=== PATIENT | male | born 1940 | race Caucasian/White ===

== ENCOUNTER → 2020-11-02 | Outpatient (CLI) | payer MEDICARE ==
[~2020-11-02] MED LIST: AMLO5 PO; Allergy Relief10 M1 PO; EUTHYROX125 MCG PO; FURO20; FURO20 PO; IBUP200 PO; METO50 PO; POTA8 PO; QUET25 PO; TADA10TA; TAMS.4ER PO; VISBIOME PROBI1 EACH PO
== END | disposition home or self-care (01) ==
LOC: LAB SHORT 12:25 → LAB EV 12:25
DX: R30.9 Painful micturition, unspecified (principal)
CPT/HCPCS: 87077; 87086; 87186

== ENCOUNTER 2020-11-08 02:21 | Inpatient (IN) | payer MEDICARE ==
[~2020-11-08] VITALS: Ht 172.7 cm; Wt 93.4 kg
[~2020-11-08 02:21] MED LIST changes: -AMLO5 PO; -FURO20; -QUET25 PO; -TADA10TA; -TAMS.4ER PO; -VISBIOME PROBI1 EACH PO
[2020-11-08 03:40] LABS: Source, Urine Catheter
[2020-11-08 03:43] LABS: BASOPHILS ABSOLUTE AUTO 0.07 K/mm3 (0.00-0.23); BASOPHILS PERCENT AUTO 1 % (0-2); Bilirubin, Urine Neg (Neg); Blood, Urine 5+ (Neg); EOSINOPHILS PERCENT AUTO 7 % (0-6); Glucose Qualitative, Urine Neg (Neg); Hematocrit 35.8 % (37.0-53.0); Hemoglobin 12.2 g/dL (13.5-17.5); IMMATURE GRAN ABSOLUTE AUTO 0.03 K/mm3 (0.00-0.10); IMMATURE GRAN PERCENT AUTO 0 % (0-1); Ketones, Urine Neg (Neg); LYMPHOCYTES ABSOLUTE AUTO 2.09 K/mm3 (0.84-5.20); LYMPHOCYTES PERCENT AUTO 30 % (21-46); Leukocyte Esterase, Urine 3+ (Neg); MONOCYTES ABSOLUTE AUTO 0.75 K/mm3 (0.16-1.47); MONOCYTES PERCENT AUTO 11 % (4-13); Mean Corpuscular HGB 32.4 pg (26.0-34.0); Mean Corpuscular HGB Conc 34.1 g/dL (31.5-36.5); Mean Corpuscular Volume 95 fL (80-100); Mean Platelet Volume 10.8 fL (9.1-12.4); NEUTROPHILS ABSOLUTE AUTO 3.49 K/mm3 (1.96-9.15); NEUTROPHILS PERCENT AUTO 50 % (41-73); Nitrite, Urine Pos (Neg); Platelet Count 144 K/mm3 (150-400); Protein, Urine 3+ (Neg); RDW Coefficient Variation 11.9 % (11.7-14.2); RDW Standard Deviation 41.2 fL (35.1-46.3); Red Blood Cell Count 3.76 M/mm3 (4.30-5.90); Specific Gravity, Urine 1.015 (1.003-1.022); Urobilinogen, Urine 2+ (Normal); White Blood Cell Count 6.93 K/mm3 (4.00-11.30)
[2020-11-08 03:45] LABS: Appearance, Urine Clear (Clear); Color, Urine Yellow (P-Yellow)
[2020-11-08 03:50] LABS: Bacteria Many /hpf; Mucus Light (0-Heavy); Squamous Epithelial Cells Not Seen /hpf (Few)
[2020-11-08 03:54] LABS: U Amphetamine Screen Not Detected; U Barbituate Screen Not Detected; U Benzodiazapine Screen DETECTED; U Buprenorphine Screen Not Detected; U Cannabinoids Screen Not Detected; U Cocaine Screen Not Detected; U Methadone Screen Not Detected; U Methamphetamine Screen Not Detected; U Opiates Screen Not Detected; U Oxycodone Screen DETECTED; U Phencyclidine Screen Not Detected; U Propoxyphene Screen Not Detected
[2020-11-08 03:59] LABS: Alanine Aminotransfer (ALT/SGP 29 U/L (12-78); Albumin/Globulin Ratio 0.8 (0.8-1.8); Alk Phos 128 U/L (50-136); Anion Gap 6 mmol/L (6-16); Aspartate Aminotrans (AST/SGOT 43 U/L (12-37); Bilirubin, Total 0.9 mg/dL (0.1-1.0); Blood Urea Nitrogen 12 mg/dL (8-24); Bun/Creatinine Ratio 11.5 (12.0-20.0); CO2, Blood 27 mmol/L (21-32); Calcium, Blood 8.7 mg/dL (8.5-10.1); Chloride, Blood 103 mmol/L (98-108); Creatinine, Blood 1.04 mg/dL (0.60-1.20); Ethanol (Alcohol), Blood, Med <3 mg/dL; Glomerular Filtration Rate >60 (60-); Glucose, Blood 100 mg/dL (70-99); Magnesium, Blood 2.2 mg/dL (1.6-2.4); Potassium, Blood 4.7 mmol/L (3.5-5.5); Sodium, Blood 136 mmol/L (136-145)
[2020-11-08 06:50] LABS: Free Thyroxine 1.13 ng/dL (0.70-1.60)
--- NOTE | 2020-11-08 11:45 | NUR ---
RECIEVED REPORT FROM DINORAH WALTERS RN @ 2578. PATIENT TO BE TRANSFERED TO ROOM 363.
--- NOTE | 2020-11-08 15:45 | NUR ---
PATIENT ARRIVED TO ROOM 363 @ 1153. [facility]. UNRELIABLE HISTORIAN. MED REC, H&P AND ADMISSION ASSESSMENT COMPLETED WITH THE ASSIST OF MEDICAL RECORDS. PATIENT ALERT AND ORIENTED WITH FORGETFULNESS. WORKED WITH PT AND AMBULATES WITH SEMI-STEADY GAIT. RESTING IN ROOM AT THIS TIME.
[2020-11-09 04:56] LABS: BASOPHILS ABSOLUTE AUTO 0.06 K/mm3 (0.00-0.23); BASOPHILS PERCENT AUTO 1 % (0-2); EOSINOPHILS ABSOLUTE AUTO 0.33 K/mm3 (0.00-0.68); EOSINOPHILS PERCENT AUTO 5 % (0-6); Hemoglobin 11.6 g/dL (13.5-17.5); IMMATURE GRAN ABSOLUTE AUTO 0.02 K/mm3 (0.00-0.10); IMMATURE GRAN PERCENT AUTO 0 % (0-1); LYMPHOCYTES ABSOLUTE AUTO 1.87 K/mm3 (0.84-5.20); LYMPHOCYTES PERCENT AUTO 31 % (21-46); MONOCYTES ABSOLUTE AUTO 0.52 K/mm3 (0.16-1.47); MONOCYTES PERCENT AUTO 9 % (4-13); Mean Corpuscular HGB 32.6 pg (26.0-34.0); Mean Corpuscular HGB Conc 34.1 g/dL (31.5-36.5); Mean Corpuscular Volume 96 fL (80-100); Mean Platelet Volume 10.4 fL (9.1-12.4); NEUTROPHILS ABSOLUTE AUTO 3.33 K/mm3 (1.96-9.15); NEUTROPHILS PERCENT AUTO 54 % (41-73); Platelet Count 133 K/mm3 (150-400); RDW Coefficient Variation 11.8 % (11.7-14.2); RDW Standard Deviation 40.9 fL (35.1-46.3); Red Blood Cell Count 3.56 M/mm3 (4.30-5.90); White Blood Cell Count 6.13 K/mm3 (4.00-11.30)
[2020-11-09 05:11] LABS: International Normalized Ratio 1.17; Prothrombin Time Results 12.4 Sec (9.7-11.5)
[2020-11-09 05:34] LABS: Alanine Aminotransfer (ALT/SGP 23 U/L (12-78); Albumin, Blood 2.7 g/dL (3.4-5.0); Albumin/Globulin Ratio 0.8 (0.8-1.8); Alk Phos 111 U/L (50-136); Anion Gap 5 mmol/L (6-16); Aspartate Aminotrans (AST/SGOT 29 U/L (12-37); Bilirubin, Total 1.1 mg/dL (0.1-1.0); Blood Urea Nitrogen 10 mg/dL (8-24); Bun/Creatinine Ratio 10.3 (12.0-20.0); CO2, Blood 28 mmol/L (21-32); Calcium, Blood 8.8 mg/dL (8.5-10.1); Chloride, Blood 108 mmol/L (98-108); Creatinine, Blood 0.97 mg/dL (0.60-1.20); Globulin, Blood 3.5 g/dL (2.2-4.0); Glomerular Filtration Rate >60 (60-); Glucose, Blood 87 mg/dL (70-99); Potassium, Blood 4.3 mmol/L (3.5-5.5); Sodium, Blood 141 mmol/L (136-145); Total Protein, Blood 6.2 g/dL (6.4-8.2); Triiodothyronine, Free 1.36 pg/mL (2.18-3.98)
--- NOTE | 2020-11-09 05:36 | NUR ---
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 ANSWERS MOST QUESTIONS APPROPRIATELY BUT SOMETIMES SAYS SOME NONSENSICAL THINGS. AT BEDTIME PT WOKE UP AND WAS READY TO GET UP AND TAKE A BATH SO THAT HE COULD GO TO WORK. PT WAS INSISTANT ON THIS FOR A FEW MINUTES BUT WAS EVENTUALLY REDIRECTED BACK TO BED. LATER THIS MORNING PT STATED "WOW WHAT TIME WAS IT LAST NIGHT THAT I WAS ALL READY TO GO AND GET OUT OF HERE? I DON'T KNOW WHAT I WAS THINKING". MENTATION MAY BE CLEARING A BIT. DENIES PAIN, SOB, N/V. VSS, WILL CONTINUE TO MONITOR.
--- NOTE | 2020-11-09 17:18 | NUR ---
SUMMARY PT SITTING UP IN BED WATCHING TV, PT HAS BEEN PLEASANT AND COOPERATIVE WITH CARE, OCC CONFUSION, FAMILY HAS BEEN IN TO VISIT, PT HAS BEEN UP TO WORK WITH THERAPY, YAHAIRA WELL, VSS, WILL CONT TO MONITOR
[2020-11-10 04:31] LABS: BASOPHILS ABSOLUTE AUTO 0.04 K/mm3 (0.00-0.23); BASOPHILS PERCENT AUTO 1 % (0-2); EOSINOPHILS ABSOLUTE AUTO 0.23 K/mm3 (0.00-0.68); EOSINOPHILS PERCENT AUTO 4 % (0-6); Hematocrit 33.4 % (37.0-53.0); Hemoglobin 11.4 g/dL (13.5-17.5); IMMATURE GRAN ABSOLUTE AUTO 0.01 K/mm3 (0.00-0.10); IMMATURE GRAN PERCENT AUTO 0 % (0-1); LYMPHOCYTES ABSOLUTE AUTO 1.81 K/mm3 (0.84-5.20); LYMPHOCYTES PERCENT AUTO 31 % (21-46); MONOCYTES ABSOLUTE AUTO 0.47 K/mm3 (0.16-1.47); MONOCYTES PERCENT AUTO 8 % (4-13); Mean Corpuscular HGB 32.2 pg (26.0-34.0); Mean Corpuscular HGB Conc 34.1 g/dL (31.5-36.5); Mean Corpuscular Volume 94 fL (80-100); Mean Platelet Volume 10.2 fL (9.1-12.4); NEUTROPHILS ABSOLUTE AUTO 3.22 K/mm3 (1.96-9.15); NEUTROPHILS PERCENT AUTO 56 % (41-73); Platelet Count 132 K/mm3 (150-400); RDW Coefficient Variation 11.6 % (11.7-14.2); RDW Standard Deviation 40.6 fL (35.1-46.3); Red Blood Cell Count 3.54 M/mm3 (4.30-5.90); White Blood Cell Count 5.78 K/mm3 (4.00-11.30)
[2020-11-10 04:47] LABS: Anion Gap 5 mmol/L (6-16); Blood Urea Nitrogen 12 mg/dL (8-24); Bun/Creatinine Ratio 12.4 (12.0-20.0); CO2, Blood 29 mmol/L (21-32); Calcium, Blood 8.8 mg/dL (8.5-10.1); Chloride, Blood 105 mmol/L (98-108); Creatinine, Blood 0.97 mg/dL (0.60-1.20); Glomerular Filtration Rate >60 (60-); Glucose, Blood 90 mg/dL (70-99); Potassium, Blood 4.1 mmol/L (3.5-5.5); Sodium, Blood 139 mmol/L (136-145)
--- NOTE | 2020-11-10 04:59 | NUR ---
SHIFT SUMMARY: VSS. AFEB. 02 97% ON RA. A/OX2- UNCLEAR ABOUT DATES AND TIME FRAMES. FORGETFUL AND IMPULSIVE. ATTEMPTED TO STAND UP AT EOB WITHOUT REGARD TO F/C TUBING. STATED THAT HIS BACK SURGERY WAS 8 DAYS AGO WHEN IT WAS NOTED ON ADMIT TO BE A MONTH AGO. CIWA SCORE OF 3. F/C PATENT AND DRAINING MARK COLORED URINE. MED X 1 FOR STERNUM PAIN- PT STATES HE RECENTLY HAD A FALL AT HOME AND HIT HIS STERNUM ON THE ARM OF A COUCH. DENIES BACK PAIN. INCISION TO LUMBAR SPINE HEALING WELL, EDGES APPROXIMATED, DORMITORY KEEPER, NO DRAINAGE. BED ALARM ON. NO ACUTE OVERNIGHT EVENTS.
--- NOTE | 2020-11-10 09:13 | NUR ---
PT HR/MEDICATION CLARIFICATION THIS RN SPOKE WITH DR. LAROSE AT 0914 ABOUT PT HR OF 51 WITH LOPRESSOR BEING ORDERED. THIS RN RECEIVED ORDERS TO CONTINUE TO GIVE THE LOPRESSOR DUE TO PT RECEIVING MEDICATION YESTERDAY WITH A HR OF 57. THIS RN WILL CONTINUE TO MONITOR PT.
--- NOTE | 2020-11-10 12:39 | NUR ---
GRIFFIN CATHETER REMOVAL THIS RN REMOVED PT'S GRIFFIN CATHETER AT 1240. BLOOD PRESENT AT TIP OF CATHETER UPON REMOVAL.
--- NOTE | 2020-11-10 19:12 | NUR ---
SHIFT SUMMARY PT IS AOX2-3. PT DENIES PAIN, N/V, SOB. PT IS UP IN CHAIR WITH BRACE T/O SHIFT. PT IS ONE PERSON ASSIST IN ROOM. THIS RN REMOVED PT'S GRIFFIN AT 1240 PER NOTE. PT HAS SINCE HAD 300 ML OUTPUT. PT WORKED WITH PT/OT AND WALKED THE HALLS. PT DID NOT HAVE ANY VISITORS TODAY. PT IS IN BED, CALL LIGHT IN REACH, BED IN LOW POSITION WITH ALARM ON.
--- NOTE | 2020-11-10 23:34 | NUR ---
CALL TO HOSPITALIST / PVR 450 PT VOIDED 25CC'S, PVR 450. CALL TO HOSPITALIST MELL AMATO. NEW ORDER FOR FLOMAX 0.4MG QD, FIRST DOSE NOW. STRAIGHT CATH PRN BLADDER DISCOMFORT.
--- NOTE | 2020-11-11 02:33 | NUR ---
STRAIGHT CATH PER ORDERS DUE TO PT VOIDING FREQUENT SMALL AMTS AND REPORTING FEELING BLADDER IS FULL. 650MLS URINE OBTAINED VIA STRAIGHT CATH. URINE CLEAR, MARK COLORED, CONCENTRATED APPEARING.
--- NOTE | 2020-11-11 04:24 | NUR ---
SHIFT SUMMARY: VSS. AFEB. AAOX2. FORGETFUL W/ DATES AND TIMES. DOES NOT CALL FOR ASSISTANCE WHEN NEEDING TO VOID. SETS BED ALARM OFF. REMEMBERS TO PUT BACK BRACE ON WHEN GETTING UP OOB. STRAIGHT CATHED X 1 PER ORDERS. TAMSULOSIN STARTED AT HS. IV ABT INFUSED PER ORDERS. SLEPT INTERMITTENTLY TONIGHT. NO C/O PAIN. NO ACUTE OVERNIGHT EVENTS WCTM.
--- NOTE | 2020-11-11 04:39 | NUR ---
PT [id number] CALLED AND UPDATED. SHE WOULD LIKE TO BE CONTACTED BY AVIATION OPERATIONS SPECIALIST OR TEAM FACILITATOR.
--- NOTE | 2020-11-11 16:05 | NUR ---
THIS NURSE NOTIFIED MURIEL MCCOY THAT PATIENT'S DAUGHTER IN LAW HAS CONCERNS ABOUT PATIENT'S LIVING SITUATION. SEE CHOLO MCCOY'S NOTE
--- NOTE | 2020-11-11 19:30 | NUR ---
SHIFT SUMMARY PT AXO, PLEASANT AND COOPERATIVE WITH CARE, THOUGH FORGETFUL. DENIES PAIN, SOB AND N/V. NO ACUTE CHANGES THIS SHIFT. IV PATENT AND SALINE LOCKED. BLADDER SCAN X2 THIS SHIFT, STRAIGHT CATH X1 WITH 700 ML OUT. PT DOES REPORT PAINFUL URINATION AND URGENCY WHEN VOIDING. BED IN LOW POSITION, CALL LIGHT WITHIN REACH.
--- NOTE | 2020-11-12 05:05 | NUR ---
OLIVING MACHINE OPERATOR SUMMARY PT A&OX4, FORGETFUL AT TIMES, ABLE TO MAKE NEEDS KNOWN. PLEASANT AND COOPERATIVE TO CARE. NO C/O PAIN OR ANY DISCOMFORT THIS SHIFT. NO C/O CP, SOB, OR N&V. PT CALM AND RESTED IN BED T/O SHIFT, ON IV ABX, NO ASE NOTED. NO ACUTE CHANGES NOTED TO PT THIS SHIFT. BED AT LOWEST POSITION W/ ALARM ON, CALL LIGHT WITHIN REACH.
--- NOTE | 2020-11-12 18:39 | NUR ---
PT WAS UP AMBULATING IN THE [facility] WITH P.T. TODAY WEARING BACK BRACE. REPORTS MILD PAIN/DISCOMFORT. FLOW MAX DOSE INCREASED TO 0.8MG DAILY. CIALIS STARTED. ORDERS FOR BLADDER SCAN EVERY 6 HOURS PRN. POSSIBLE DISCHARGE TOMORROW. NO ACUTE CHANGES NOTED, WILL CONTINUE TO MONITOR AND REPORT TO ONCOMING RN.
--- NOTE | 2020-11-13 04:36 | NUR ---
GREEN PLUMBER SUMMARY PT A&OX4, ABLE TO MAKE NEEDS KNOWN. PLEASANT AND COOPERATIVE TO CARE. PT MEDICATED FOR PAIN PER EMAR. NO C/O CP, SOB, OR N&V. NO ACUTE CHANGES NOTED TO PT THIS SHIFT. CALM NA RESTED IN BED T/O SHIFT. BED AT LOWEST POSITION, ALARM ON. PT SBA TO BATHROOM. CALL LIGHT WITHIN REACH.
[2020-11-13] MEDS ORDERED: TADA10TA (15:45)
[2020-11-13] MEDS ORDERED: QUET25 PO (15:46)
[2020-11-13] MEDS ORDERED: VISBIOME PROBI1 EACH PO (15:48)
[2020-11-13] MEDS ORDERED: TAMS.4ER PO (15:48)
[2020-11-13] MEDS ORDERED: AMLO5 PO (15:50)
--- NOTE | 2020-11-13 16:34 | NUR ---
DISCHARGE DISCHARGE INSTRUCTIONS, MEDICTION LIST AND FOLLOW UP APPOINTMENT REVIEWED WITH PT AND HIS SON. PT WITHOUT PCP, NEW PT PACKAGE GIVEN AND PT INSTRUCTED TO FOLLOW UP AT URGENT CARE. NEW PCP TO BE ASSIGNED AT THAT TIME. PT AND SON VERBALLY INDICATED UNDERSTANDING OF ALL INSTRUCTIONS RECEIVED. PT ESCORTED OUT VIA W/C BY SYBIL.
== END 2020-11-13 16:32 | disposition home or self-care (01) | DRG 698 ==
LOC: ER 02:21 → ERHOLD 02:22 → MEDS 12:03
PROVIDERS: Emergency Medicine; Internal Medicine; ADMIT Internal Medicine
DX: T83.511A Infection and inflammatory reaction due to indwelling urethral catheter, initial encounter (principal); G92 Toxic encephalopathy; N13.8 Other obstructive and reflux uropathy; N39.0 Urinary tract infection, site not specified; E86.0 Dehydration; B96.5 Pseudomonas (aeruginosa) (mallei) (pseudomallei) as the cause of diseases classified elsewhere; D64.9 Anemia, unspecified; M54.5 Low back pain; I10 Essential (primary) hypertension; E03.9 Hypothyroidism, unspecified; N40.1 Benign prostatic hyperplasia with lower urinary tract symptoms; F03.90 Unspecified dementia, unspecified severity, without behavioral disturbance, psychotic disturbance, mood disturbance, and anxiety; T42.4X5A Adverse effect of benzodiazepines, initial encounter; T40.605A Adverse effect of unspecified narcotics, initial encounter; F17.210 Nicotine dependence, cigarettes, uncomplicated; F10.20 Alcohol dependence, uncomplicated; Z98.890 Other specified postprocedural states; Y84.6 Urinary catheterization as the cause of abnormal reaction of the patient, or of later complication, without mention of misadventure at the time of the procedure
CPT/HCPCS: 36415; 51701; 70450; 71046; 72100; 73620; 80048; 80053; 81001; 82140; 83735; 84439; 84443; 84481; 85025; 85610; 87077; 87086; 87186; 96360; 96361; 96365; 96367; 96372; 96375; 97110; 97116; 97129; 97162; 97165; 97530; 97535; 99285-25; A9270; G0378; G0480; J0696; J0713; J1650; J1885; J3411; J7030; J7050

== ENCOUNTER → 2020-11-24 | Outpatient (CLI) | payer MEDICARE ==
[~2020-11-24] MED LIST changes: +AMLO5 PO; +FURO20; +QUET25 PO; +TADA10TA; +TAMS.4ER PO; +VISBIOME PROBI1 EACH PO
[2020-11-24 17:38] LABS: Appearance, Urine Clear (Clear); Bilirubin, Urine Neg (Neg); Blood, Urine Neg (Neg); Color, Urine Amber (P-Yellow); Glucose Qualitative, Urine Neg (Neg); Ketones, Urine 1+ (Neg); Leukocyte Esterase, Urine 1+ (Neg); Nitrite, Urine Neg (Neg); Protein, Urine 1+ (Neg); Urobilinogen, Urine 1+ (Normal)
[2020-11-24 18:02] LABS: Calcium Oxalate Crystals Mod /hpf; Mucus Mod (0-Heavy); Squamous Epithelial Cells Few /hpf (Few)
[2020-11-24 18:03] LABS: Bacteria Few /hpf; Red Blood Cells, Urine 0-2 /hpf (0-2)
[2020-11-24 19:39] LABS: Alanine Aminotransfer (ALT/SGP 44 U/L (12-78); Albumin, Blood 3.4 g/dL (3.4-5.0); Alk Phos 152 U/L (50-136); Anion Gap 5 mmol/L (6-16); Aspartate Aminotrans (AST/SGOT 45 U/L (12-37); Bilirubin, Total 0.7 mg/dL (0.1-1.0); Blood Urea Nitrogen 11 mg/dL (8-24); Bun/Creatinine Ratio 13.4 (12.0-20.0); CO2, Blood 28 mmol/L (21-32); Calcium, Blood 8.4 mg/dL (8.5-10.1); Chloride, Blood 109 mmol/L (98-108); Creatinine, Blood 0.82 mg/dL (0.60-1.20); Globulin, Blood 3.5 g/dL (2.2-4.0); Glomerular Filtration Rate >60 (60-); Glucose, Blood 106 mg/dL (70-99); Potassium, Blood 4.4 mmol/L (3.5-5.5); Sodium, Blood 142 mmol/L (136-145); Total Protein, Blood 6.9 g/dL (6.4-8.2)
== END | disposition home or self-care (01) ==
LOC: LAB 12:55 → LAB SHORT 12:55
PROVIDERS: Registered Nurse
DX: N39.0 Urinary tract infection, site not specified (principal); I10 Essential (primary) hypertension; R53.83 Other fatigue; M10.9 Gout, unspecified
CPT/HCPCS: 80053; 81001; 84443; 84550; 87077; 87086; 87186

== ENCOUNTER 2021-01-11 12:51 | Emergency (ER) | payer MEDICARE ==
[~2021-01-11] VITALS: Ht 172.7 cm; Wt 96.2 kg
[~2021-01-11 12:51] MED LIST changes: -FURO20
[2021-01-11 13:42] LABS: BASOPHILS ABSOLUTE AUTO 0.08 K/mm3 (0.00-0.23); BASOPHILS PERCENT AUTO 1 % (0-2); EOSINOPHILS ABSOLUTE AUTO 0.15 K/mm3 (0.00-0.68); EOSINOPHILS PERCENT AUTO 2 % (0-6); Hemoglobin 12.2 g/dL (13.5-17.5); IMMATURE GRAN ABSOLUTE AUTO 0.02 K/mm3 (0.00-0.10); IMMATURE GRAN PERCENT AUTO 0 % (0-1); LYMPHOCYTES ABSOLUTE AUTO 2.02 K/mm3 (0.84-5.20); LYMPHOCYTES PERCENT AUTO 28 % (21-46); MONOCYTES ABSOLUTE AUTO 0.48 K/mm3 (0.16-1.47); MONOCYTES PERCENT AUTO 7 % (4-13); Mean Corpuscular HGB 29.8 pg (26.0-34.0); Mean Corpuscular Volume 90 fL (80-100); Mean Platelet Volume 10.6 fL (9.1-12.4); NEUTROPHILS ABSOLUTE AUTO 4.36 K/mm3 (1.96-9.15); NEUTROPHILS PERCENT AUTO 61 % (41-73); Platelet Count 126 K/mm3 (150-400); RDW Coefficient Variation 13.2 % (11.7-14.2); RDW Standard Deviation 43.5 fL (35.1-46.3); White Blood Cell Count 7.11 K/mm3 (4.00-11.30)
[2021-01-11] MEDS ORDERED: FURO20 (13:52)
[2021-01-11 13:55] LABS: Alanine Aminotransfer (ALT/SGP 21 U/L (12-78); Albumin, Blood 3.4 g/dL (3.4-5.0); Alk Phos 119 U/L (50-136); Anion Gap 5 mmol/L (6-16); Aspartate Aminotrans (AST/SGOT 25 U/L (12-37); Blood Urea Nitrogen 8 mg/dL (8-24); Bun/Creatinine Ratio 8.7 (12.0-20.0); CO2, Blood 27 mmol/L (21-32); Calcium, Blood 8.5 mg/dL (8.5-10.1); Chloride, Blood 107 mmol/L (98-108); Creatinine, Blood 0.92 mg/dL (0.60-1.20); Globulin, Blood 3.4 g/dL (2.2-4.0); Glomerular Filtration Rate >60 (60-); Glucose, Blood 81 mg/dL (70-99); Potassium, Blood 3.7 mmol/L (3.5-5.5); Sodium, Blood 139 mmol/L (136-145); Total Protein, Blood 6.8 g/dL (6.4-8.2)
== END 2021-01-11 16:50 | disposition home or self-care (01) ==
LOC: ER 12:51
PROVIDERS: Physician Assistant
DX: M79.89 Other specified soft tissue disorders (principal); I10 Essential (primary) hypertension; E03.9 Hypothyroidism, unspecified; F17.220 Nicotine dependence, chewing tobacco, uncomplicated; Z79.899 Other long term (current) drug therapy
CPT/HCPCS: 80053; 83880; 85025; 93970; 99284-25

== ENCOUNTER → 2021-03-16 | Outpatient (CLI) | payer MEDICARE ==
[~2021-03-16] MED LIST changes: +FURO20
[2021-03-16 19:44] LABS: BASOPHILS ABSOLUTE AUTO 0.08 K/mm3 (0.00-0.23); BASOPHILS PERCENT AUTO 1 % (0-2); EOSINOPHILS ABSOLUTE AUTO 0.33 K/mm3 (0.00-0.68); EOSINOPHILS PERCENT AUTO 4 % (0-6); Hematocrit 39.7 % (37.0-53.0); Hemoglobin 12.9 g/dL (13.5-17.5); IMMATURE GRAN ABSOLUTE AUTO 0.03 K/mm3 (0.00-0.10); IMMATURE GRAN PERCENT AUTO 0 % (0-1); LYMPHOCYTES ABSOLUTE AUTO 2.23 K/mm3 (0.84-5.20); LYMPHOCYTES PERCENT AUTO 28 % (21-46); MONOCYTES ABSOLUTE AUTO 0.63 K/mm3 (0.16-1.47); MONOCYTES PERCENT AUTO 8 % (4-13); Mean Corpuscular HGB 29.5 pg (26.0-34.0); Mean Corpuscular HGB Conc 32.5 g/dL (31.5-36.5); Mean Corpuscular Volume 91 fL (80-100); Mean Platelet Volume 11.2 fL (9.1-12.4); NEUTROPHILS ABSOLUTE AUTO 4.71 K/mm3 (1.96-9.15); NEUTROPHILS PERCENT AUTO 59 % (41-73); Platelet Count 112 K/mm3 (150-400); RDW Coefficient Variation 14.9 % (11.7-14.2); RDW Standard Deviation 50.1 fL (35.1-46.3); Red Blood Cell Count 4.37 M/mm3 (4.30-5.90); White Blood Cell Count 8.01 K/mm3 (4.00-11.30)
[2021-03-16 20:04] LABS: Free Thyroxine 1.16 ng/dL (0.70-1.60); PSA, Free 0.481 ng/mL
[2021-03-16 20:05] LABS: Alanine Aminotransfer (ALT/SGP 30 U/L (12-78); Albumin, Blood 3.5 g/dL (3.4-5.0); Albumin/Globulin Ratio 0.9 (0.8-1.8); Alk Phos 130 U/L (50-136); Anion Gap 6 mmol/L (6-16); Aspartate Aminotrans (AST/SGOT 39 U/L (12-37); Bilirubin, Total 0.7 mg/dL (0.1-1.0); Blood Urea Nitrogen 12 mg/dL (8-24); Bun/Creatinine Ratio 11.1 (12.0-20.0); CHOL/HDL RATIO 2.4; CO2, Blood 28 mmol/L (21-32); Calcium, Blood 8.8 mg/dL (8.5-10.1); Chloride, Blood 106 mmol/L (98-108); Cholesterol 166 mg/dL (50-200); Creatinine, Blood 1.08 mg/dL (0.60-1.20); Globulin, Blood 3.7 g/dL (2.2-4.0); Glomerular Filtration Rate >60 (60-); Glucose, Blood 86 mg/dL (70-99); HDL Cholesterol 69 mg/dL (>39); LDL/HDL RATIO 1.2; Low Density Lipoprotein Chol 85 mg/dL (0-110); PSA, %Free 22.5 %; Potassium, Blood 4.4 mmol/L (3.5-5.5); Sodium, Blood 140 mmol/L (136-145); Total Protein, Blood 7.2 g/dL (6.4-8.2); Triglycerides 60 mg/dL (30-160); Very Low Density Lipoprot Chol 12 mg/dL (6-32)
== END ==
LOC: LAB 17:59 → LAB SHORT 17:59
PROVIDERS: Nurse Practitioner Family
DX: E78.5 Hyperlipidemia, unspecified (principal); N40.1 Benign prostatic hyperplasia with lower urinary tract symptoms; R53.83 Other fatigue
CPT/HCPCS: 80053; 80061; 84153; 84154; 84439; 84443; 85025

== ENCOUNTER → 2021-07-10 | Outpatient (CLI) | payer MEDICARE ==
[2021-07-10 17:02] LABS: Appearance, Urine Hazy (Clear); Bilirubin, Urine Neg (Neg); Blood, Urine Neg (Neg); Color, Urine Yellow (P-Yellow); Glucose Qualitative, Urine Neg (Neg); Ketones, Urine Neg (Neg); Leukocyte Esterase, Urine Neg (Neg); Nitrite, Urine Neg (Neg); Protein, Urine 1+ (Neg); Urobilinogen, Urine 2+ (Normal)
[2021-07-10 17:05] LABS: Bacteria Rare /hpf; Calcium Oxalate Crystals Rare /hpf; Red Blood Cells, Urine 0-2 /hpf (0-2); Squamous Epithelial Cells Rare /hpf (Few); White Blood Cells, Urine 0-2 /hpf (0-5)
== END | disposition home or self-care (01) ==
LOC: LAB SHORT 15:52 → LAB 15:52
PROVIDERS: Nurse Practitioner Family
DX: N39.0 Urinary tract infection, site not specified (principal)
CPT/HCPCS: 81001

== ENCOUNTER → 2021-07-12 | Outpatient (CLI) | payer MEDICARE ==
[2021-07-12 12:37] LABS: BASOPHILS ABSOLUTE AUTO 0.08 K/mm3 (0.00-0.23); BASOPHILS PERCENT AUTO 1 % (0-2); EOSINOPHILS ABSOLUTE AUTO 0.33 K/mm3 (0.00-0.68); EOSINOPHILS PERCENT AUTO 4 % (0-6); Hematocrit 41.3 % (37.0-53.0); Hemoglobin 13.9 g/dL (13.5-17.5); IMMATURE GRAN ABSOLUTE AUTO 0.02 K/mm3 (0.00-0.10); IMMATURE GRAN PERCENT AUTO 0 % (0-1); LYMPHOCYTES ABSOLUTE AUTO 2.88 K/mm3 (0.84-5.20); LYMPHOCYTES PERCENT AUTO 38 % (21-46); MONOCYTES ABSOLUTE AUTO 0.45 K/mm3 (0.16-1.47); MONOCYTES PERCENT AUTO 6 % (4-13); Mean Corpuscular HGB 31.2 pg (26.0-34.0); Mean Corpuscular HGB Conc 33.7 g/dL (31.5-36.5); Mean Corpuscular Volume 93 fL (80-100); Mean Platelet Volume 10.6 fL (9.1-12.4); NEUTROPHILS ABSOLUTE AUTO 3.76 K/mm3 (1.96-9.15); NEUTROPHILS PERCENT AUTO 50 % (41-73); Platelet Count 100 K/mm3 (150-400); RDW Coefficient Variation 13.3 % (11.7-14.2); RDW Standard Deviation 45.7 fL (35.1-46.3); Red Blood Cell Count 4.45 M/mm3 (4.30-5.90); White Blood Cell Count 7.52 K/mm3 (4.00-11.30)
[2021-07-12 13:28] LABS: Alanine Aminotransfer (ALT/SGP 27 U/L (12-78); Albumin, Blood 3.2 g/dL (3.4-5.0); Albumin/Globulin Ratio 0.9 (0.8-1.8); Alk Phos 107 U/L (50-136); Anion Gap 5 mmol/L (6-16); Aspartate Aminotrans (AST/SGOT 30 U/L (12-37); Bilirubin, Total 1.7 mg/dL (0.1-1.0); Blood Urea Nitrogen 14 mg/dL (8-24); Bun/Creatinine Ratio 14.5 (12.0-20.0); CHOL/HDL RATIO 2.6; CO2, Blood 27 mmol/L (21-32); Calcium, Blood 8.9 mg/dL (8.5-10.1); Chloride, Blood 108 mmol/L (98-108); Cholesterol 171 mg/dL (50-200); Creatinine, Blood 0.97 mg/dL (0.60-1.20); Free Thyroxine 1.18 ng/dL (0.70-1.60); Globulin, Blood 3.7 g/dL (2.2-4.0); Glomerular Filtration Rate >60 (60-); Glucose, Blood 99 mg/dL (70-99); HDL Cholesterol 67 mg/dL (>39); LDL/HDL RATIO 1.4; Low Density Lipoprotein Chol 91 mg/dL (0-110); PSA, %Free 19.2 %; PSA, Free 0.464 ng/mL; Potassium, Blood 4.1 mmol/L (3.5-5.5); Sodium, Blood 140 mmol/L (136-145); Total Protein, Blood 6.9 g/dL (6.4-8.2); Triglycerides 66 mg/dL (30-160); Very Low Density Lipoprot Chol 13 mg/dL (6-32)
== END | disposition home or self-care (01) ==
LOC: LAB 10:18 → LAB SHORT 10:18 → LAB FUT 11-24 14:00
PROVIDERS: Nurse Practitioner Family
DX: E03.9 Hypothyroidism, unspecified (principal); E78.5 Hyperlipidemia, unspecified; D53.9 Nutritional anemia, unspecified; N40.1 Benign prostatic hyperplasia with lower urinary tract symptoms
CPT/HCPCS: 36415; 80053; 80061; 82607; 82746; 84153; 84154; 84439; 84443; 85025

== ENCOUNTER → 2021-10-19 | Outpatient (CLI) | payer MEDICARE | END | disposition home or self-care (01) | LOC: LAB SHORT 09:00 → LAB 09:00 → LAB FUT 10-17 09:10 | PROVIDERS: Nurse Practitioner Family | DX: R10.9 Unspecified abdominal pain (principal); R31.9 Hematuria, unspecified | CPT/HCPCS: 81050; 84560 ==

== ENCOUNTER → 2023-01-09 | Outpatient (CLI) | payer MEDICARE, BC ==
[2023-01-09 15:50] LABS: Free Thyroxine 1.08 ng/dL (0.70-1.60)
[2023-01-09 15:52] LABS: Thyroid Stimulating Hormone 0.683 uIU/mL (0.360-4.800)
== END | disposition home or self-care (01) ==
LOC: LAB 11:37 → LAB SHORT 11:37
PROVIDERS: Nurse Practitioner Family
DX: E03.9 Hypothyroidism, unspecified (principal)
CPT/HCPCS: 84439; 84443

== ENCOUNTER → 2023-09-30 | Outpatient (CLI) | payer MEDICARE, BC ==
[2023-09-30 17:41] LABS: BASOPHILS ABSOLUTE AUTO 0.04 K/mm3 (0.00-0.23); BASOPHILS PERCENT AUTO 1 % (0-2); EOSINOPHILS ABSOLUTE AUTO 0.29 K/mm3 (0.00-0.68); EOSINOPHILS PERCENT AUTO 5 % (0-6); Hematocrit 37.8 % (37.0-53.0); IMMATURE GRAN ABSOLUTE AUTO 0.01 K/mm3 (0.00-0.10); IMMATURE GRAN PERCENT AUTO 0 % (0-1); LYMPHOCYTES ABSOLUTE AUTO 1.98 K/mm3 (0.84-5.20); LYMPHOCYTES PERCENT AUTO 34 % (21-46); MONOCYTES ABSOLUTE AUTO 0.39 K/mm3 (0.16-1.47); MONOCYTES PERCENT AUTO 7 % (4-13); Mean Corpuscular HGB 32.4 pg (26.0-34.0); Mean Corpuscular HGB Conc 34.4 g/dL (31.5-36.5); Mean Corpuscular Volume 94 fL (80-100); Mean Platelet Volume 10.7 fL (9.1-12.4); NEUTROPHILS ABSOLUTE AUTO 3.12 K/mm3 (1.96-9.15); NEUTROPHILS PERCENT AUTO 53 % (41-73); Platelet Count 102 K/mm3 (150-400); RDW Coefficient Variation 13.4 % (11.7-14.2); RDW Standard Deviation 47.1 fL (35.1-46.3); Red Blood Cell Count 4.01 M/mm3 (4.30-5.90); White Blood Cell Count 5.83 K/mm3 (4.00-11.30)
[2023-09-30 18:39] LABS: CHOL/HDL RATIO 2.3; Cholesterol 136 mg/dL (50-200); Free Thyroxine 1.17 ng/dL (0.70-1.60); HDL Cholesterol 60 mg/dL (>39); LDL/HDL RATIO 1.1; Low Density Lipoprotein Chol 65 mg/dL (0-110); Triglycerides 57 mg/dL (30-160); Very Low Density Lipoprot Chol 11 mg/dL (6-32)
[2023-09-30 18:43] LABS: Thyroid Stimulating Hormone 0.409 uIU/mL (0.360-4.800)
[2023-10-02 09:11] LABS: A/G RATIO 1.7 (1.2-2.2); CALCIUM, SERUM 9.1 mg/dL (8.6-10.2); CREATININE, SERUM 1.08 mg/dL (0.76-1.27); GLOBULIN, TOTAL 2.4 g/dL (1.5-4.5); POTASSIUM, SERUM 4.2 mmol/L (3.5-5.2); PROTEIN, TOTAL, SERUM 6.4 g/dL (6.0-8.5)
== END | disposition home or self-care (01) ==
LOC: LAB EV 15:47 → LAB SHORT 15:47
PROVIDERS: Nurse Practitioner Family
DX: E03.9 Hypothyroidism, unspecified (principal); I10 Essential (primary) hypertension
CPT/HCPCS: 80053; 80061; 84439; 84443; 85025

== ENCOUNTER → 2024-12-08 | Outpatient (CLI) | payer MEDICARE, BC ==
[2024-12-08 19:26] LABS: BASOPHILS ABSOLUTE AUTO 0.06 K/mm3 (0.00-0.23); BASOPHILS PERCENT AUTO 1 % (0-2); EOSINOPHILS ABSOLUTE AUTO 0.32 K/mm3 (0.00-0.68); EOSINOPHILS PERCENT AUTO 6 % (0-6); Hematocrit 36.2 % (37.0-53.0); Hemoglobin 12.6 g/dL (13.5-17.5); IMMATURE GRAN ABSOLUTE AUTO 0.02 K/mm3 (0.00-0.10); IMMATURE GRAN PERCENT AUTO 0 % (0-1); LYMPHOCYTES ABSOLUTE AUTO 1.66 K/mm3 (0.84-5.20); LYMPHOCYTES PERCENT AUTO 32 % (21-46); MONOCYTES ABSOLUTE AUTO 0.36 K/mm3 (0.16-1.47); MONOCYTES PERCENT AUTO 7 % (4-13); Mean Corpuscular HGB 32.1 pg (26.0-34.0); Mean Corpuscular HGB Conc 34.8 g/dL (31.5-36.5); Mean Corpuscular Volume 92 fL (80-100); Mean Platelet Volume 10.9 fL (9.1-12.4); NEUTROPHILS ABSOLUTE AUTO 2.84 K/mm3 (1.96-9.15); NEUTROPHILS PERCENT AUTO 54 % (41-73); Platelet Count 100 K/mm3 (150-400); RDW Standard Deviation 44.1 fL (35.1-46.3); Red Blood Cell Count 3.92 M/mm3 (4.30-5.90); White Blood Cell Count 5.26 K/mm3 (4.00-11.30)
[2024-12-08 19:57] LABS: Alanine Aminotransfer (ALT/SGP 28 U/L (12-78); Albumin, Blood 3.7 g/dL (3.4-5.0); Albumin/Globulin Ratio 1.2 (0.8-1.8); Alk Phos 100 U/L (50-136); Anion Gap 9 mmol/L (3-11); Aspartate Aminotrans (AST/SGOT 34 U/L (12-37); Bilirubin, Total 1.1 mg/dL (0.1-1.0); Blood Urea Nitrogen 16 mg/dL (8-24); CHOL/HDL RATIO 2.2; CO2, Blood 26 mmol/L (21-32); Calcium, Blood 8.6 mg/dL (8.5-10.1); Chloride, Blood 106 mmol/L (98-108); Cholesterol 134 mg/dL (50-200); Creatinine, Blood 1.07 mg/dL (0.60-1.20); Free Thyroxine 1.52 ng/dL (0.70-1.60); Globulin, Blood 3.1 g/dL (2.2-4.0); Glomerular Filtration Rate 68 (60-); Glucose, Blood 94 mg/dL (70-99); HDL Cholesterol 60 mg/dL (>39); LDL/HDL RATIO 1.1; Low Density Lipoprotein Chol 64 mg/dL (0-110); Potassium, Blood 4.2 mmol/L (3.5-5.5); Sodium, Blood 137 mmol/L (136-145); Total Protein, Blood 6.8 g/dL (6.4-8.2); Triglycerides 51 mg/dL (30-160); Very Low Density Lipoprot Chol 10 mg/dL (6-32)
[2024-12-08 20:05] LABS: PSA, %Free 25.2 %; PSA, Free 0.267 ng/mL; Thyroid Stimulating Hormone 0.063 uIU/mL (0.360-4.800)
== END ==
LOC: LAB 16:07 → LAB SHORT 16:07
PROVIDERS: Nurse Practitioner Family
DX: E03.9 Hypothyroidism, unspecified (principal); I50.9 Heart failure, unspecified; E78.5 Hyperlipidemia, unspecified; N40.1 Benign prostatic hyperplasia with lower urinary tract symptoms
CPT/HCPCS: 80053; 80061; 84153; 84154; 84439; 84443; 85025

== ENCOUNTER → 2025-08-11 | Outpatient (CLI) | payer MEDICARE, BC ==
[2025-08-11 17:51] LABS: BASOPHILS ABSOLUTE AUTO 0.05 K/mm3 (0.00-0.23); BASOPHILS PERCENT AUTO 1 % (0-2); EOSINOPHILS ABSOLUTE AUTO 0.22 K/mm3 (0.00-0.68); EOSINOPHILS PERCENT AUTO 4 % (0-6); Hematocrit 37.8 % (37.0-53.0); Hemoglobin 12.8 g/dL (13.5-17.5); IMMATURE GRAN ABSOLUTE AUTO 0.01 K/mm3 (0.00-0.10); IMMATURE GRAN PERCENT AUTO 0 % (0-1); LYMPHOCYTES ABSOLUTE AUTO 1.66 K/mm3 (0.84-5.20); LYMPHOCYTES PERCENT AUTO 27 % (21-46); MONOCYTES ABSOLUTE AUTO 0.41 K/mm3 (0.16-1.47); MONOCYTES PERCENT AUTO 7 % (4-13); Mean Corpuscular HGB Conc 33.9 g/dL (31.5-36.5); Mean Corpuscular Volume 94 fL (80-100); NEUTROPHILS ABSOLUTE AUTO 3.71 K/mm3 (1.96-9.15); NEUTROPHILS PERCENT AUTO 61 % (41-73); NRBC ABSOLUTE 0.00 K/mm3 (0.00-0.02); NRBC Auto 0.0 /100 WBC (0.0-0.2); Platelet Count 101 K/mm3 (150-400); RDW Coefficient Variation 12.9 % (11.7-14.2); RDW Standard Deviation 45.1 fL (35.1-46.3)
[2025-08-11 20:45] LABS: Alanine Aminotransfer (ALT/SGP 32.0 U/L (12-78); Albumin, Blood 3.7 g/dL (3.4-5.0); Albumin/Globulin Ratio 1.2 (0.8-1.8); Anion Gap 8.0 mmol/L (3-11); Aspartate Aminotrans (AST/SGOT 30.0 U/L (12-37); Bilirubin, Total 0.6 mg/dL (0.1-1.0); Blood Urea Nitrogen 16.0 mg/dL (8-24); CO2, Blood 28.0 mmol/L (21-32); Calcium, Blood 9.0 mg/dL (8.5-10.1); Chloride, Blood 106.0 mmol/L (98-108); Creatinine, Blood 0.99 mg/dL (0.60-1.20); Globulin, Blood 3.0 g/dL (2.2-4.0); Glucose, Blood 116.0 mg/dL (70-99); Potassium, Blood 4.1 mmol/L (3.5-5.5); Sodium, Blood 138.0 mmol/L (136-145); Thyroid Stimulating Hormone 0.135 uIU/mL (0.360-4.800); Total Protein, Blood 6.7 g/dL (6.4-8.2)
== END | disposition home or self-care (01) ==
LOC: LAB SHORT 16:38 → LAB 16:38
PROVIDERS: Nurse Practitioner Family
DX: E03.9 Hypothyroidism, unspecified (principal)
CPT/HCPCS: 80053; 84439; 84443; 85025